=== PATIENT | female | born 1995 | race Hispanic/Latino ===

== ENCOUNTER 2019-03-22 11:59 | Emergency (ER) | payer BC ==
[2019-03-22] MEDS ORDERED: ONDANSETRON 4 MG (ODT) TAB ONE (12:24)
[2019-03-22 13:16] LABS: Absolute Lymphocytes (CBC) 0.6 K/uL (0.7-4.9); Basophils % 0.2 % (0-1.3); Hematocrit 48.4 % (36.0-45.0); Lymphocytes % 6.8 % (15.3-44.8); MPV 8.3 fL (7.6-11.3); Monocytes % 3.5 % (3.3-12.3); RBC Red Blood Cell Count 5.22 M/uL (3.86-4.86)
[2019-03-22 13:34] LABS: Bilirubin Direct 0.1 mg/dL (0-0.2); Bilirubin Total 0.7 mg/dL (0.2-1.0); Potassium 3.8 mmol/L (3.5-5.1); Protein, Total 8.4 g/dL (6.4-8.2)
[2019-03-22] MEDS ORDERED: NA CHLORIDE 0.9% 1,000 ML ONE (13:40)
--- NOTE | 2019-03-22 14:30 | EDPHYS ---
Physician Documentation [facility] Name: Janice Fischer Age: 24 yrs Sex: Female : 1995 Arrival Date: 03/22/2019 Time: 12:02 Bed 20 Private MD: ED Physician Jakob Sellers HPI: 03/22 13:24 This 24 yrs old Female presents to ER via Unassigned with complaints of kb Vomiting. 13:24 The patient presents to the emergency department with nausea, vomiting, diarrhea. kb Onset: The symptoms/episode began/occurred this morning. Possible causes: unknown. The symptoms are aggravated by nothing. The symptoms are alleviated by nothing. Associated signs and symptoms: Pertinent positives: diarrhea, nausea, vomiting, Pertinent negatives: abdominal pain, fever. Severity of symptoms: At their worst the symptoms were moderate in the emergency department the symptoms are unchanged. The patient has not experienced similar symptoms in the past. The patient has not recently seen a physician. 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 - Social history:: Smoking status: unknown. - Ebola Screening: : Patient negative for fever greater than or equal to 101.5 degrees Fahrenheit, and additional compatible Ebola Virus Disease symptoms Patient denies exposure to infectious person Patient denies travel to an Ebola-affected area in the 21 days before illness onset No symptoms or risks identified at this time. ROS: 13:24 Constitutional: Negative for fever, chills, and weight loss, Cardiovascular: Negative kb for chest pain, palpitations, and edema, Respiratory: Negative for shortness of breath, cough, wheezing, and pleuritic chest pain, Back: Negative for injury and pain, : Negative for injury, bleeding, discharge, and swelling, MS/Extremity: Negative for injury and deformity, Skin: Negative for injury, rash, and discoloration, Neuro: Negative for headache, weakness, numbness, tingling, and seizure. 13:24 Abdomen/GI: Positive for nausea, vomiting, and diarrhea, Negative for abdominal pain. Exam: 13:25 Constitutional: This is a well developed, well nourished patient who is awake, alert, kb and in no acute distress. Head/Face: Normocephalic, atraumatic. Chest/axilla: Normal chest wall appearance and motion. Nontender with no deformity. No lesions are appreciated. Cardiovascular: Regular rate and rhythm with a normal S1 and S2. No gallops, murmurs, or rubs. Normal PMI, no JVD. No pulse deficits. Respiratory: Lungs have equal breath sounds bilaterally, clear to auscultation and percussion. No rales, rhonchi or wheezes noted. No increased work of breathing, no retractions or nasal flaring. Abdomen/GI: Soft, non-tender, with normal bowel sounds. No distension or tympany. No guarding or rebound. No evidence of tenderness throughout. Back: No spinal tenderness. No costovertebral tenderness. Full range of motion. Skin: Warm, dry with normal turgor. Normal color with no rashes, no lesions, and no evidence of cellulitis. MS/ Extremity: Pulses equal, no cyanosis. Neurovascular intact. Full, normal range of motion. Neuro: Awake and alert, GCS 15, oriented to person, place, time, and situation. Cranial nerves II-XII grossly intact. Motor strength 5/5 in all extremities. Sensory grossly intact. Cerebellar exam normal. Normal gait. Vital Signs: 12:05 BP 131 / 82; Pulse 95; Resp 16; Temp 98.2; Pulse Ox 100% on R/A; Weight 47.17 kg; aj Height 5 ft. 1 in. (154.94 cm); 12:05 Body Mass Index 19.65 (47.17 kg, 154.94 cm) aj MDM: 12:44 Patient medically screened. kb 13:25 Data reviewed: vital signs, nurses notes. Data interpreted: Pulse oximetry: on room air kb is 100 %. Interpretation: normal. Counseling: I had a detailed discussion with the patient and/or guardian regarding: the historical points, exam findings, and any diagnostic results supporting the discharge/admit diagnosis, lab results, the need for outpatient follow up, a family practitioner, to return to the emergency department if symptoms worsen or persist or if there are any questions or concerns that arise at home. 03/22 12:53 Order name: Basic Metabolic Panel; Complete Time: 13:41 kb 03/22 12:53 Order name: CBC with Diff kb 03/22 12:53 Order name: Hepatic Function; Complete Time: 13:41 kb 03/22 12:53 Order name: Lipase; Complete Time: 13:41 kb 03/22 13:27 Order name: CBC Smear Scan EDMS 03/22 14:45 Order name: Urine Dipstick--Ancillary (enter results) ms 03/22 12:53 Order name: IV Saline Lock; Complete Time: 13:09 kb 03/22 12:53 Order name: Labs collected and sent; Complete Time: 13:09 kb 03/22 13:42 Order name: PO challenge; Complete Time: 15:05 kb 03/22 14:45 Order name: Urine --Ancillary (enter results) ms Administered Medications: 12:08 Drug: Zofran 4 mg Route: PO; aj 13:28 Drug: NS 0.9% 1000 ml Route: IV; Rate: 1000 ml; Site: right antecubital; iw Disposition: 17:21 Co-signature as Attending Physician, Jakob Sellers MD I agree with the assessment and kdr plan of care. Disposition: 03/22/19 14:29 Discharged to Home. Impression: Nausea and vomiting, Diarrhea, unspecified. - Condition is Stable. - Discharge Instructions: Nausea and Vomiting, Adult, [id number], Diarrhea, Adult, [id number]. - Prescriptions for Zofran 4 mg Oral Tablet - take 1 tablet by ORAL route every 6 hours As needed; 20 tablet. - Medication Reconciliation Form, Thank You Letter, Antibiotic Education, Prescription Opioid Use, Work release form form. - Follow up: Emergency Department; When: As needed; Reason: Worsening of condition. Follow up: Private Physician; When: 2 - 3 days; Reason: Recheck today's complaints, Continuance of care, Re-evaluation by your physician. Signatures: Dispatcher [employer] EDOR Catarina Smith, MIDDLE SCHOOL COMBINATION TEACHER-C MIDDLE SCHOOL COMBINATION TEACHER-Lilian Crain RN RN aj Rittger, Kevin, MD MD kdr Williams, Irene, RN RN iw Corrections: (The following items were deleted from the chart) 15:11 14:29 03/22/2019 14:29 Discharged to Home. Impression: Nausea and vomiting; Diarrhea, iw unspecified. Condition is Stable. Forms are Medication Reconciliation Form, Thank You Letter, Antibiotic Education, Prescription Opioid Use. Follow up: Emergency Department; When: As needed; Reason: Worsening of condition. Follow up: Private Physician; When: 2 - 3 days; Reason: Recheck today's complaints, Continuance of care, Re-evaluation by your physician. kb
--- NOTE | 2019-03-22 14:30 | ER ---
Nurse's Notes [facility] Name: Janice Fischer Age: 24 yrs Sex: Female : 1995 Arrival Date: 03/22/2019 Time: 12:02 Bed 20 Private MD: Diagnosis: Nausea and vomiting;Diarrhea, unspecified Presentation: 03/22 12:05 Presenting complaint: Patient states: N/V/D since this AM. Care prior to arrival: None. aj 12:05 Acuity: WERNER 3 aj 13:10 Transition of care: patient was not received from another setting of care. Onset of iw symptoms was March 22, 2019. Risk Assessment: Do you want to hurt yourself or someone else? Patient reports no desire to harm self or others. Initial Sepsis Screen: Does the patient meet any 2 criteria? No. Patient's initial sepsis screen is negative. Does the patient have a suspected source of infection? No. Patient's initial sepsis screen is negative. 13:10 Method Of Arrival: Ambulatory iw 13:10 Onset of symptoms was 2018. iw Triage Assessment: 12:05 General: Appears in no apparent distress. comfortable, Behavior is calm, cooperative, aj appropriate for age. Pain: Denies pain. Neuro: Level of Consciousness is awake, alert, obeys commands, Oriented to person, place, time, situation, Appropriate for age. Respiratory: Airway is patent Respiratory effort is even, unlabored, Respiratory pattern is regular, symmetrical. GI: Reports diarrhea, nausea, vomiting. Derm: Skin is intact, is healthy with good turgor, Skin is pink, warm \T\ dry. normal. 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 - Social history:: Smoking status: unknown. - Ebola Screening: : Patient negative for fever greater than or equal to 101.5 degrees Fahrenheit, and additional compatible Ebola Virus Disease symptoms Patient denies exposure to infectious person Patient denies travel to an Ebola-affected area in the 21 days before illness onset No symptoms or risks identified at this time. Screenin:11 Abuse screen: Denies threats or abuse. Denies injuries from another. Nutritional iw screening: No deficits noted. Tuberculosis screening: No symptoms or risk factors identified. Fall Risk IV access (20 points). Assessment: 13:10 General: Appears in no apparent distress. Behavior is calm, cooperative. Pain: Denies iw pain. Neuro: Level of Consciousness is awake, alert, obeys commands, Moves all extremities. Full function. Cardiovascular: Patient's skin is warm and dry. Respiratory: Respiratory effort is even, unlabored, Respiratory pattern is regular. GI: Abdomen is flat, non-distended, Abd is soft X 4 quads Abd is non tender X 4 quads Reports diarrhea, nausea, vomiting. Derm: Skin is intact, is healthy with good turgor. Musculoskeletal: Range of motion: intact in all extremities. Vital Signs: 12:05 BP 131 / 82; Pulse 95; Resp 16; Temp 98.2; Pulse Ox 100% on R/A; Weight 47.17 kg; aj Height 5 ft. 1 in. (154.94 cm); 12:05 Body Mass Index 19.65 (47.17 kg, 154.94 cm) aj ED Course: 12:02 Patient arrived in ED. as 12:02 Catarina Smith FNP-C [facility] kb 12:02 Jakob Sellers MD is Attending Physician. kb 12:05 Triage completed. aj 12:05 Arm band placed on left wrist. Patient placed in an exam room. aj 12:57 Nasrin English, RN is Primary Nurse. iw 13:09 Initial lab(s) drawn, by me, sent to lab. Inserted saline lock: 22 gauge in right iw antecubital area, using aseptic technique. Blood collected. 13:10 Patient has correct armband on for positive identification. iw 15:10 No provider procedures requiring assistance completed. IV discontinued, intact, iw bleeding controlled, No redness/swelling at site. Pressure dressing applied. Administered Medications: 12:08 Drug: Zofran 4 mg Route: PO; aj 13:28 Drug: NS 0.9% 1000 ml Route: IV; Rate: 1000 ml; Site: right antecubital; iw Outcome: 14:29 Discharge ordered by . kb 15:10 Discharged to home ambulatory. iw 15:10 Condition: good 15:10 Discharge instructions given to patient, Instructed on discharge instructions, follow up and referral plans. medication usage, Demonstrated understanding of instructions, follow-up care, medications, Prescriptions given X 1. 15:11 Patient left the ED. iw Signatures: Catarina Smith, REGIONAL SALES TRAINER-C REGIONAL SALES TRAINER-Lilian Crain, RN RN Dolores Hurst Irene, RN MARY iw
[2019-03-22 15:44] LABS: Urine Blood NEGATIVE (NEG); Urine Glucose NEGATIVE (NEG); Urine Protein NEGATIVE (NEG); Urine Specific Gravity 1.015 (1.005-1.030); Urine pH 8.5 (5.0-7.0)
[2019-03-22 15:45] LABS: Urine White Blood Cell Casts DIFF
[2019-03-22 15:46] LABS: Blood Morphology Comment NOT SEEN (NOT SEEN); Platelet Estimate ADEQ; Toxic Granulation PRESENT
== END 2019-03-22 15:11 | disposition home or self-care (01) ==
LOC: ER 11:59
DX: R11.2 Nausea with vomiting, unspecified (principal); R19.7 Diarrhea, unspecified
CPT/HCPCS: 36415; 80048; 80076; 81003; 81025; 83690; 85025; 99284; J7030